=== PATIENT | female | born 1990 | race African-American/Black ===

== ENCOUNTER 2016-09-18 09:29 | Emergency (ER) | payer OTHER ==
[~2016-09-18] VITALS: Ht 167.6 cm; Wt 68.5 kg
[2016-09-18 09:34] VITALS: Ht 167.6 cm; Wt 68.5 kg
[2016-09-18] MEDS ORDERED: IBUP400T22 PO (10:37)
--- NOTE | 2016-09-18 11:36 | ERD ---
ER Documentation Chief Complaint Date/Time DATE: 09/18/16 TIME: 11:34 Chief Complaint LT THUMB PAIN HPI This is a 26-year-old female presenting to the emergency department complaining of left thumb pain status post sitting on her thumb earlier today. Patient rates the pain as 4 out of 10 only with movement. She denies any pain without movement. Patient's denies any restricted range of motion. She has not taken any medications for this. ROS All systems reviewed and are negative except as per history of present illness. Medications Home Meds Active Scripts Ibuprofen* (Ibuprofen*) 400 Mg Tablet, 400 MG PO Q6H Y for PAIN, #30 TAB Prov:NILAMAdaLIZBETAlexandre Joaquin BEST 09/18/16 PMhx/Soc Medical and Surgical Hx: pt denies Medical Hx, pt denies Surgical Hx Hx Alcohol Use: No Hx Substance Use: No Hx Tobacco Use: No Smoking Status: Never smoker Physical Exam Vitals Vital Signs Date Time Temp Pulse Resp B/P Pulse Ox O2 Delivery O2 Flow Rate FiO2 09/18/16 09:34 98.2 79 18 105/55 99 Physical Exam General: WD/WN, in no apparent distress, non-toxic appearing HENT: NC/AT Eyes: Conjunctiva normal Neck: Supple Pulm: Clear to auscultation, normal labored breathing; no wheezing/rales/ rhonchi heard CV: Good capillary refill GI: Non-distended, no guarding Back: No masses Ext: Nontender to palpation on the left thumb, negative snuffbox tenderness, full range of motion Neuro: Moves on all fours Skin: intact Psych: Normal mood Procedures/MDM This is a 26-year-old female presenting to the emergency department complaining of left thumb pain status post sitting on her thumb earlier today which is likely due to a thumb sprain. There was no evidence of any fracture dislocation due to physical examination. Patient had full range of motion and nontender to palpation on her exam. She was tender with range of motion. Patient was placed in a metal splint with good fit, she is neurovascular intact pre-and post treatment. I discussed to follow-up with primary care physician. Patient stable for discharge for home. She understands and agrees with plan. Departure Diagnosis: Primary Impression: Thumb injury Additional Impression: Thumb sprain Condition: Stable Patient Instructions: Sprain Finger Referrals: NO PRIMARY,CARE PHYSICIAN Additional Instructions: FOLLOW UP WITH YOUR PRIMARY CARE PHYSICIAN TOMORROW.Return to this facility if you are not improving as expected. Return to this facility if you are not improving as expected. BATSHEVA KEN PA-C September 18, 2016 11:36
== END 2016-09-18 10:52 | disposition home or self-care (01) ==
LOC: FTE 09:29
DX: S63.602A Unspecified sprain of left thumb, initial encounter (principal); X58.XXXA Exposure to other specified factors, initial encounter; Y92.9 Unspecified place or not applicable
CPT/HCPCS: 29125; Z7502; Z7610